=== PATIENT | female | born 1980 | race Caucasian/White ===

== ENCOUNTER 2016-11-26 21:59 | Emergency (ER) | payer BC, OTHER ==
[~2016-11-26] VITALS: Ht 162.6 cm; Wt 68.0 kg
[2016-11-26 22:05] VITALS: BP 135/93
[2016-11-26 22:41] LABS: URINE BLOOD TRACE (Negative); URINE COLOR YELLOW; URINE GLUCOSE-RANDOM* NEGATIVE (Negative); URINE KETONES 2+ (Negative); URINE LEUKOCYTES-REFLEX NEGATIVE (Negative); URINE PROTEIN (DIPSTICK) 1+ (Negative); URINE SPECIFIC GRAVITY >= 1.030 (1.003-1.035); URINE UROBILINOGEN 0.2 E.U./dl (0.2-1.0)
[2016-11-26 22:44] LABS: ICTOTEST (BILI CONFIRMATORY) Negative (Negative); URINE BILIRUBIN NEGATIVE (Negative)
[2016-11-26 22:52] LABS: SQUAMOUS >10 Many /LPF (0-3)
[2016-11-26 22:53] LABS: CASTS None Seen /LPF (None Seen); CRYSTALS None Seen /LPF (None Seen); URINE WBC-REFLEX 0-5 Rare /HPF (0-5)
[2016-11-26] MEDS ORDERED: COZAAR 50 MG TA50 M2 PO (23:05)
[2016-11-26 23:18] LABS: ABSOLUTE NEUTROPHILS 9.7 thou/uL (1.4-8.2); BASOPHILS 0.4 % (0.0-2.0); HEMATOCRIT 37.9 % (37.0-47.0); LYMPHOCYTES 10.1 % (24.0-44.0); MCH 31.5 pg (26.0-34.0); MCHC 34.2 g/dL (28.0-37.0); MCV 91.9 fL (80.0-100.0); MONOCYTES 5.2 % (1.0-8.0); PLATELET COUNT 314 thou/uL (150-400); POLYS 84.3 % (36.0-66.0); RBC 4.13 mil/uL (4.20-5.00); RDW 12.5 % (10.5-14.5); WBC 11.5 thou/uL (4.0-11.0)
[2016-11-26 23:24] LABS: MANUAL DIFF NO
[2016-11-26 23:27] LABS: CALCIUM 8.9 mg/dL (8.5-10.1); CREATININE 0.6 mg/dL (0.6-1.0); POTASSIUM 3.4 mmol/L (3.5-5.1)
[2016-11-26 23:33] LABS: ALBUMIN 4.2 g/dL (3.4-5.0); TOTAL BILIRUBIN 0.5 mg/dL (<0.1-1.0); TOTAL PROTEIN 7.5 g/dL (6.4-8.2)
[2016-11-27] MEDS ORDERED: ZOFRAN ODT4 MG PO (03:39)
[2016-11-27] MEDS ORDERED: PHENERGAN 25 MG25 M1 PO (03:39)
[2016-11-27] MEDS ORDERED: ULTRAM 50MG TAB50 MG PO (03:39)
[2016-11-27] MEDS ORDERED: CARAFATE 1 GM TA1 G1 PO (03:39)
[2016-11-27] MEDS ORDERED: OMEPRAZOLE20 M1 PO (03:40)
== END 2016-11-27 03:42 | disposition home or self-care (01) ==
LOC: ER 21:59
PROVIDERS: Emergency Medicine
DX: K29.00 Acute gastritis without bleeding (principal); F10.99 Alcohol use, unspecified with unspecified alcohol-induced disorder